=== PATIENT | male | born 2000 | race Hispanic/Latino ===

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

== ENCOUNTER 2024-12-18 13:51 | Emergency (ER) | payer MEDICAID ==
[~2024-12-18] VITALS: Ht 170.2 cm; Wt 137.9 kg
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
[2024-12-18] MEDS ORDERED: 0.9%NACL 1000ML 1,000 ML IV ONE (14:30)
[2024-12-18 14:37] LABS: BASOPHILS % (AUTO) 0.6 % (0.0-5.0); EOSINOPHILS # (AUTO) 0.07 K/uL (0.00-0.70); EOSINOPHILS % (AUTO) 0.4 % (0.0-8.0); HEMATOCRIT 51.9 % (42-54); IMMATURE GRANULOCYTE ABSOLUTE 0.14 K/uL (0-1); LYMPHOCYTES % (AUTO) 12.1 % (21.0-51.0); MEAN CORPUSCULAR HEMOGLOBIN 28.2 pg (27.0-33.0); MEAN CORPUSCULAR HGB CONC 34.1 g/dL (32.0-36.0); MEAN CORPUSCULAR VOLUME 82.6 fL (79-99); MONOCYTES # (AUTO) 0.9 K/uL (0.1-1.0); MONOCYTES % (AUTO) 5.6 % (3.0-13.0); NEUTROPHILS # (AUTO) 13.2 K/uL (1.8-7.7); NEUTROPHILS % (AUTO) 80.4 % (40.0-77.0); PLATELET COUNT (AUTO) 375 K/uL (130-400); RED BLOOD CELL COUNT(AUTO) 6.28 MIL/uL (4.50-6.20); RED CELL DISTRIBUTION WIDTH 14.6 % (11.0-15.5); WHITE BLOOD COUNT (AUTO) 16.5 K/uL (4.8-10.8)
[2024-12-18 14:48] LABS: PARTIAL THROMBOPLASTIN TIME 62.6 SEC (26.3-35.5)
--- NOTE | 2024-12-18 14:57 | EKG ---
[facility] Test Date: 2024-12-18 Test Time: 14:10:07 Pat Name: LAMINE BRAXTON Department: [facility] Room: Gender: M Program Counselor: 2000 Requested By: HAWA ACOSTA Order Number: [id number] Reading MD: Farooq Gardner Measurements Intervals [place] Rate: 84 P: 7 [place]: 222 QRS: 193 QRSD: 74 T: 66 QT: 0 QTc: 0 Interpretive Statements No further analysis attempted - not enough leads could be measured Compared to ECG 12/29/2017 14:24:42 Sinus rhythm no longer present Myocardial infarct finding no longer present Probable old laterat [place] Electronically Signed On 12-20-2024 14:00:34 CDT by Farooq Gardner Please click the below link to view image of tracing.
[2024-12-18 15:01] LABS: MAGNESIUM 2.5 mg/dL (1.80-2.40); POTASSIUM 3.2 mmol/L (3.5-5.1)
[2024-12-18 15:10] LABS: B-TYPE NATRIURETIC PEPTIDE 8 pg/mL (0-100)
[2024-12-18 15:14] LABS: INR 5.54 (0.85-1.15); PROTHROMBIN TIME 49.6 SEC (9.6-11.6)
--- NOTE | 2024-12-18 15:49 | HMCIMG ---
Exam Type: CHEST 1VW Clinical Information: CHEST PAIN Comparison: None Findings: There is cardiomegaly and there is status post median sternotomy. The lungs are clear of infiltrates. Left-sided cardiac pacemaker is noted with leads in place. Impression: Clear lungs.
[2024-12-18] MEDS: PoTASSium BIcarbonate/CIT AC 25 MEQ TABLET.EFF PO ONE (15:58)
--- NOTE | 2024-12-18 16:45 | NUR ---
TRANSFER REQUEST FOR HIGHER LEVEL OF CARE TO [facility] PER HAWA ACOSTA NP. TRAMAINE K[facility]P
--- NOTE | 2024-12-18 16:58 | NUR ---
TRANSFER CENTER INTAKE NURSE CALL JERAMIE POOLE WITH ACCEPTANCE UNDER DR MARISA SEAY TO [place] [facility] ROOM 2415 AND [place] WILL PROVIDE AIR TRANSPORTATION . PRIMARY NURSE TO CALL REPORT TO [phone]
[2024-12-18] MEDS ORDERED: PHARMACY COMMUNICATION MISC SCH (17:00)
--- NOTE | 2024-12-18 18:00 | NUR ---
HAWA WOODWARD RECEIVED CALL FROM THE TRANSFER CENTER UNABLE TO TRANSPORT PT VIA AIR DO TO WEIGHT. PRIMARY NURSE TO CONTACT [facility] TO TRANSPORT VIA GROUND. TRAMAINE KEMP
--- NOTE | 2024-12-18 18:22 | NUR ---
[facility] CALL[facility] FOR TRANSFER TO [facility]
[2024-12-18] MEDS: daptoMYCin 500MG/vial 500 MG in 0.9%NACL 50ML 50 ML IV ONE (18:33)
[2024-12-18] MEDS: ceFEPime HCL 1 GM VIAL IVPB STA (18:34)
[2024-12-18 19:10] VITALS: BP 83/49; PULSE 64
[2024-12-18 19:16] LABS: APPEARANCE,URINE CLEAR (CLEAR); BILIRUBIN,URINE NEGATIVE (NEGATIVE); COLOR,URINE COLORLESS (YELLOW); GLUCOSE, URINE (UA) 200 mg/dL (NEGATIVE); KETONES,URINE NEGATIVE (NEGATIVE); LEUKOCYTE ESTERASE ,URINE NEGATIVE Leu/uL (NEGATIVE); NITRATE,URINE NEGATIVE (NEGATIVE); OCCULT BLOOD,URINE NEGATIVE (NEGATIVE); PROTEIN,URINE NEGATIVE (NEGATIVE); UROBILINOGEN,URINE 0.2 mg/dL (0.2-1.0)
[2024-12-18 19:17] LABS: ADD UA MICROSCOPIC YES
[2024-12-18 19:18] LABS: WBC,URINE 0-1 /HPF (0-1)
[2024-12-18 20:45] VITALS: RESP 18; TEMP 98.7; O2SAT 96
--- NOTE | 2024-12-18 20:45 | NUR ---
[facility] AT BEDSIDE FOR TRANSPORT TO [facility], REPORT CALLED TO [facility] BY JUSTO MART AT 1930. ALL QUESTIONS ANSWERED. FAMILY AT BEDSIDE AND AWARE OF PLAN OF CARE. PT IS A&OX4, GCS 15, RESP EVEN AND UNLABORED ON RA, DENIES NEEDS AT THIS TIME, NO SIGNS OF ACUTE DISTRESS NOTED AT TIME OF DEPARTURE. ALL PT BELONGINGS SENT WITH PT AT THIS TIME. MAP 82 AT TIME OF DEPARTURE.
== END 2024-12-18 20:45 | disposition short-term general hospital (02) ==
LOC: EDH 13:51
DX: T85.730A Infection and inflammatory reaction due to ventricular intracranial (communicating) shunt, initial encounter (principal); T45.515A Adverse effect of anticoagulants, initial encounter; N17.9 Acute kidney failure, unspecified; E87.6 Hypokalemia; E87.1 Hypo-osmolality and hyponatremia; E86.0 Dehydration; I10 Essential (primary) hypertension; Z95.1 Presence of aortocoronary bypass graft; Z95.810 Presence of automatic (implantable) cardiac defibrillator; Y84.8 Other medical procedures as the cause of abnormal reaction of the patient, or of later complication, without mention of misadventure at the time of the procedure; Y92.89 Other specified places as the place of occurrence of the external cause
CPT/HCPCS: 99291; 96374; 96375; 83615; 83735; 84484; 80048; 83880; 85025; 85610; 85730; 85651; 87040 ×2; 83605; 86140; 81001; 36415; 71045; 93005; 84145; J0692; J0878; 99285

== ENCOUNTER 2025-07-11 20:54 | Inpatient (IN) | payer MEDICAID ==
[~2025-07-11] VITALS: Ht 177.8 cm; Wt 145.9 kg
[2025-07-11 21:38] LABS: IMMATURE GRANULOCYTE ABSOLUTE 0.06 K/uL (0-1); NUCLEATED RED BLOOD CELLS 0.0 % (0.0-0.19); PLATELET COUNT (AUTO) 253 K/uL (130-400); RED BLOOD CELL COUNT(AUTO) 5.41 MIL/uL (4.50-6.20); RED CELL DISTRIBUTION WIDTH 15.4 % (11.0-15.5); WHITE BLOOD COUNT (AUTO) 14.9 K/uL (4.8-10.8)
[2025-07-11 21:49] LABS: CREATININE 0.9 mg/dL (0.5-1.3); GLOMERULAR FILTR. RATE CALC 122.0 mL/min (>90); GLUCOSE,RANDOM 110.0 mg/dL (70-105); SODIUM SERUM 131.0 mmol/L (136-145); UREA NITROGEN, BLOOD 26.0 mg/dL (7-18)
[2025-07-11 21:54] LABS: CREATINE KINASE, TOTAL 128.0 U/L (21-232)
--- NOTE | 2025-07-11 22:38 | HMCIMG ---
EXAM: CR Chest, 1 View. CLINICAL HISTORY: SOB COMPARISON: December 18 2024 FINDINGS: LUNGS: The lungs show no infiltrate or other acute finding. PLEURAL SPACES: No pleural effusion or pneumothorax. MEDIASTINUM: There is cardiomegaly. Cardiac pacemaker is seen. BONES: No aggressive appearing osseous lesion seen. IMPRESSION: No acute cardiopulmonary pathology is evident. /[place]
[2025-07-11 22:59] LABS: INR 1.09 (0.85-1.15)
--- NOTE | 2025-07-11 23:05 | ERN ---
ED Note History of Present Illness Stated Complaint: SHORTNESS OF BREATH Chief Complaint: Shortness of Breath Time Seen by MD: 21:05 Dictation: 25-year-old male presents to ER complaints of shortness of breath. Patient's has a history of cardiomegaly, pacemaker, cardiomyopathy. Patient currently uses an LVAD. Patient states he has been retaining fluid for the past few days. States his LVAD coordinator told him to come into ER to get further evaluation possibly diuresed. Allergies: Coded Allergies: No Known Drug Allergies (Unverified Allergy, Unknown, 02/21/24) Past Medical History Past Medical History: Heart Disease, Hypertension, Other Additional Past Medical Hx: CARDIO MYOPATHY Surgical History: CABG, Pacer/AICD Surgical History Other: LVAD Review of System Dictation CONSTITUTIONAL: NEGATIVE FOR FEVER,CHILLS, AND WEIGHT LOSS EYES: NEGATIVE FOR INJURY, PAIN,REDNESS, AND DISCHARGE ENT: NEGATIVE FOR INJURY,PAIN OR SWELLING CARDIOVASCULAR: NEGATIVE FOR CHEST PAIN, PALPITATIONS, AND EDEMA RESPIRATORY: NEGATIVE FOR COUGH, WHEEZING, AND PLEURITIC CHEST PAIN. Positive shortness of breath ABDOMEN/GI: NEGATIVE FOR ABDOMINAL PAIN, NAUSEA, VOMITING AND DIARRHEA. BACK: NEGATIVE FOR PAIN OR INJURY : NEGATIVE FOR INJURY, BLEEDING AND DISCHARGE MS/EXTREMITY: NEGATIVE FOR INJURY AND DEFORMITY SKIN: NEGATIVE FOR RASH, AND DISCOLORATION NEURO: NEGATIVE FOR HEADACHE, WEAKNESS, NUMBNESS, TINGLING, AND SEIZURE PSYCH: NEGATIVE FOR SUICIDE IDEATION, HOMICIDAL IDEATION, AND HALLUCINATIONS ALLERGY/IMMUNOLOGY: NEGATIVE FOR HIVES, RASH, AND ALLERGIES ALL SYSTEMS NEGATIVE, EXCEPT NOTED ABOVE. 13 POINT REVIEW OF SYSTEMS ASSESSED AND ALL NEGATIVE EXCEPT FOR ABOVE. Physical Exam Dictation General: awake, alert, NAD Head/Face: Normocephalic, atraumatic Eyes: PERRL, EOMI, vision at baseline ENT: oral cavity clear, TMs clear, no signs of infection Neck: Trachea midline, supple, no nuchal rigidity Cardiovascular: RRR, normal no JVD Respiratory: CTAB, no respiratory distress Abdomen: Obese, Soft, non-tender, non-distended, normal bowel sounds, no guarding or rebound. LVAD drain noted to right side of abdomen Skin: Warm, dry, normal turgor, no rash MS/Extremity: Pulses equal, no cyanosis, neurovascular intact, FROM Neuro: COAx4, GCS 15, strength 5/5, CN 2-12 intact, normal cerebellar exam, normal gait, Psych: Normal behavior, mood, and affect normal Results (Laboratory/Radiology) Laboratory/Radiology Laboratory Tests Test 07/11/25 21:32 07/11/25 22:19 07/11/25 23:16 White Blood Count 14.9 K/uL (4.8-10.8) H Red Blood Count 5.41 MIL/uL (4.50-6.20) Hemoglobin 14.3 g/dL (14.0-18.0) Hematocrit 44.1 % (42-54) Mean Corpuscular Volume 81.5 fL (79-99) Mean Corpuscular Hemoglobin 26.4 pg (27.0-33.0) L Mean Corpuscular Hemoglobin Concent 32.4 g/dL (32.0-36.0) Red Cell Distribution Width 15.4 % (11.0-15.5) Platelet Count 253 K/uL (130-400) Mean Platelet Volume 10.3 fL (7.5-10.5) Immature Granulocyte % (Auto) 0.4 % (0-1) Neutrophils (%) (Auto) 77.4 % (40.0-77.0) H Lymphocytes (%) (Auto) 16.0 % (21.0-51.0) L Monocytes (%) (Auto) 5.2 % (3.0-13.0) Eosinophils (%) (Auto) 0.5 % (0.0-8.0) Basophils (%) (Auto) 0.5 % (0.0-5.0) Neutrophils # (Auto) 11.5 K/uL (1.8-7.7) H Lymphocytes # (Auto) 2.4 K/uL (1.0-4.8) Monocytes # (Auto) 0.8 K/uL (0.1-1.0) Eosinophils # (Auto) 0.07 K/uL (0.00-0.70) Basophils # (Auto) 0.08 K/uL (0.00-0.20) Absolute Immature Granulocyte (auto 0.06 K/uL (0-1) Nucleated Red Blood Cells 0.0 % (0.0-0.19) Prothrombin Time 11.5 SEC (9.6-11.6) Prothromb Time International Ratio 1.09 (0.85-1.15) Activated Partial Thromboplast Time 27.0 SEC (26.3-35.5) Sodium Level 131 mmol/L (136-145) L Potassium Level 4.1 mmol/L (3.5-5.1) Chloride Level 91 mmol/L (101-111) L Carbon Dioxide Level 29 mmol/L (21-32) Blood Urea Nitrogen 26 mg/dL (7-18) H Creatinine 0.9 mg/dL (0.5-1.3) Glomerular Filtration Rate Calc 122 mL/min (>90) Random Glucose 110 mg/dL (70-105) H Total Calcium 8.7 mg/dL (8.5-10.1) Magnesium Level 2.40 mg/dL (1.80-2.40) Total Creatine Kinase 128 U/L (21-232) Troponin I High Sensitivity 11 ng/L (4-75) B-Type Natriuretic Peptide 314 pg/mL (0-100) H Lactic Acid Level 2.6 mmol/L (0.8-2.5) H Urine Color YELLOW (YELLOW) Urine Appearance CLEAR (CLEAR) Urine pH 5.5 (5.0-8.0) Urine Specific [place] 1.018 (1.001-1.031) Urine Protein 20 mg/dL (NEGATIVE) H Urine Glucose (UA) 300 mg/dL (NEGATIVE) H Urine Ketones NEGATIVE mg/dL (NEGATIVE) Urine Occult Blood NEGATIVE (NEGATIVE) Urine Nitrate NEGATIVE (NEGATIVE) Urine Bilirubin NEGATIVE mg/dL (NEGATIVE) Urine Urobilinogen 0.2 mg/dL (0.2-1.0) Urine Leukocyte Esterase NEGATIVE Donald/uL Urine RBC 0-1 /HPF (0-1) Urine WBC 2-5 /HPF (0-1) H Urine Squamous Epithelial Cells RARE /HPF (0-2) Urine Bacteria FEW /HPF (None Seen) Urine Hyaline Casts 2-5 /LPF (0-1 /LPF) H X-RAY Comment: PATIENT: LAMINE BRAXTON MR#: [id number] : 2000 SEX: M AGE: 25 LOCATION: [facility] ORDER 23 STATUS: REG REPORT#: [id number] SERVICE 21 REASON: SOB ORDERING PHYSICIAN: FRANCOIS ANTONIO PROCEDURE: CXR1VW - CHEST 1VW EXAM: CR Chest, 1 View. CLINICAL HISTORY: SOB COMPARISON: December 18 2024 FINDINGS: LUNGS: The lungs show no infiltrate or other acute finding. PLEURAL SPACES: No pleural effusion or pneumothorax. MEDIASTINUM: There is cardiomegaly. Cardiac pacemaker is seen. BONES: No aggressive appearing osseous lesion seen. IMPRESSION: No acute cardiopulmonary pathology is evident. /[place] ED Course ED Course Orders Procedure Category Date Status Time Cbc With Differential LAB 07/11/25 Complete 21:22 Chest 1vw RAD 07/11/25 Resulted 21:22 12 Lead Ekg Tracing- EKG 07/11/25 Logged Technical 21:22 Magnesium LAB 07/11/25 Complete 21:22 Creatine Kinase, Total LAB 07/11/25 Complete 21:22 Troponin I High LAB 07/11/25 Complete Sensitivity 21:22 Urinalysis Profile LAB 07/11/25 In Process 21:22 Basic Metabolic Panel LAB 07/11/25 Complete 21:22 B-Type Natriuretic LAB 07/11/25 Complete Peptide 21:22 Lactic Acid LAB 07/11/25 Complete 22:09 Pt And Ptt LAB 07/11/25 Complete 22:43 Drug Screen Urine LAB 07/11/25 Logged 23:29 Medical Decision Making MDM MDM: Differential diagnosis: Pulmonary edema, CHF, cardiomegaly, cardiomyopathy Rationale: Tests considered and ordered secondary to shared decision making include: labs, ECG and radiology Previous outside records reviewed: Old ER visits. Risk of complication and/or morbidity or mortality of patient management: None Medications-Per medication reconciliation Need for hospitalization: Patient does meet criteria for hospitalization. Need for emergency major/minor surgery: No There are no social concerns with this patient. Prescription drug management Prescriptions will include symptomatic care Patient's prior external medical records from other ER visits were reviewed by me as indicated. Prior testing and results from previous visits were reviewed. Prior tests were taken into account with medical decision making and resource utilization, independent historian/historians were used to obtain complete medical history. I independently interpreted the test that were performed, results were reviewed by me and considered findings on radiology if ordered. Patient will be admitted to Dr. Badillo his PCP. Consulted and admitted. DX & DISP Disposition: Inpatient Departure Impression: Primary Impression: Dyspnea Additional Impressions: Leukocytosis, CHF (congestive heart failure), Cardiomegaly Condition: Stable Referrals: BRICE BADILLO MD (PCP) FRANCOIS ANTONIO Jul 11, 2025 23:04
[2025-07-11 23:31] LABS: APPEARANCE,URINE CLEAR (CLEAR); GLUCOSE, URINE (UA) 300 mg/dL (NEGATIVE); LEUKOCYTE ESTERASE ,URINE NEGATIVE Leu/uL (NEGATIVE); NITRATE,URINE NEGATIVE (NEGATIVE); OCCULT BLOOD,URINE NEGATIVE (NEGATIVE)
[2025-07-11 23:43] LABS: ADD UA MICROSCOPIC YES
[2025-07-11 23:45] LABS: SQUAMOUS EPITHELIAL CELL,UR RARE /HPF (0-2)
[2025-07-12] VITALS (20 sets, daily range): BP systolic 90–94; BP diastolic 65–72; PULSE 88–134; RESP 17–107; TEMP 98.4–99.8; O2SAT 96
--- NOTE | 2025-07-12 00:53 | NUR ---
REPORT GIVEN TO JERAMIE KEMP
[2025-07-12] MEDS ORDERED: BUME1TAB6 PO (03:58)
[2025-07-12] MEDS ORDERED: HYDR25TA PO (03:58)
[2025-07-12] MEDS ORDERED: EMPA10TA PO (03:58)
[2025-07-12] MEDS ORDERED: MAGN400T53 PO (03:58)
[2025-07-12] MEDS ORDERED: FAMO20TA8 PO (03:58)
[2025-07-12] MEDS ORDERED: SPIR100T5 PO (03:58)
[2025-07-12] MEDS ORDERED: DOXY100C5 PO (03:58)
[2025-07-12] MEDS ORDERED: APIX5TAB PO (03:58)
[2025-07-12] MEDS ORDERED: BUPR-49 PO (03:58)
[2025-07-12] MEDS ORDERED: MUPI22OI2 TP (03:58)
[2025-07-12] MEDS ORDERED: DIGO125T71 PO (03:58)
[2025-07-12] MEDS ORDERED: TIRZ7.5P SQ (03:58)
[2025-07-12] MEDS ORDERED: CARV6.25 PO (03:58)
[2025-07-12] MEDS ORDERED: POTA10CA95 PO (03:58)
[2025-07-12] MEDS ORDERED: LOSA25TA41 PO (03:58)
--- NOTE | 2025-07-12 04:34 | EKG ---
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
[2025-07-12 08:24] LABS: AMPHET/METH SCREEN,URINE NEGATIVE (NEGATIVE); BARBITURATE SCREEN, URINE NEGATIVE (NEGATIVE); CANNABINOID SCREEN,URINE NEGATIVE (NEGATIVE); COCAINE SCREEN,URINE NEGATIVE (NEGATIVE)
[2025-07-12] MEDS ORDERED: NON-FORMULARY MEDICATION 1 EACH (Potassium Chloride 10 MEQ) PO SCH (08:30)
[2025-07-12] MEDS: BUPROPION HCL 300 MG PO SCH (09:00)
--- NOTE | 2025-07-12 09:10 | NUR ---
NURSING NOTE DR. DOZIER ROUND ON PATIENT ALL HOME MEDS REVIEWED WITH MD AND PATIENT LVAD COORDINATOR AND RESTARTED.
[2025-07-12 09:14] LABS: IMMATURE GRANULOCYTE ABSOLUTE 0.08 K/uL (0-1); NUCLEATED RED BLOOD CELLS 0.0 % (0.0-0.19); PLATELET COUNT (AUTO) 261 K/uL (130-400); RED BLOOD CELL COUNT(AUTO) 5.50 MIL/uL (4.50-6.20); RED CELL DISTRIBUTION WIDTH 15.7 % (11.0-15.5); WHITE BLOOD COUNT (AUTO) 14.6 K/uL (4.8-10.8)
[2025-07-12 09:23] LABS: CREATININE 1.0 mg/dL (0.5-1.3); GLOMERULAR FILTR. RATE CALC 107.0 mL/min (>90); GLUCOSE,RANDOM 109.0 mg/dL (70-105); SODIUM SERUM 138.0 mmol/L (136-145); UREA NITROGEN, BLOOD 23.0 mg/dL (7-18)
[2025-07-12 09:28] LABS: ASPARTATE AMINOTRANSFERASE 25.0 U/L (10-37); TOTAL PROTEIN, SERUM 7.4 g/dL (6.0-8.3)
--- NOTE | 2025-07-12 09:42 | CONS ---
[facility] CARDIOLOGY CONSULTATION NOTE Date Patient Seen: Jul 12, 2025 Time of Visit: 09:31 Requesting Physician:Dr Rasmussen Reason for Consultation:AEHFREF History of Present Illness: Patient is a 25-year-old male with past medical history of longstanding heart f ailure with reduced ejection fraction, nonischemic cardiomyopathy with left ventricular assist device placement 4 years ago, CardioMEMS device, primary prevention ICD. 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 His primary environmental geologist is at [facility] in [place], Dr. Spears. Patient presented with chief complaint of shortness of breath and weight gain. Previous dry weight 138 kg, 143 kg upon presentation. BNP elevated at 314 however chest x-ray clear. No objective hypoxia however patient subjectively short of breath. No significant peripheral edema. Patient reports compliance with his medications. No ICD shocks reported and no issues with his LVAD. Current readings 5600 RPM, flow 4.2, PI 2.9, power 4.0 Past Medical History: NICMP PNA LVAD drivetrain infection, on chronic ABX Past Surgical History: LVAD, CardioMEMs, ICD Family History: denies Social History: good family support; denies tobacco; denies etoh Current Meds: Current Medications Medications Dose Ordered Sig/Chago Start Time Stop Time Status Last Admin Furosemide 40 mg Q8H 07/12/25 00:00 08/11/25 00:00 07/12/25 08:02 Ceftriaxone Sodium 1 gm Q24H 07/12/25 00:00 07/22/25 00:00 07/12/25 03:19 Apixaban 5 mg BID 07/12/25 09:00 08/11/25 08:59 Carvedilol 6.25 mg BID 07/12/25 09:00 08/11/25 08:59 Digoxin 125 mcg DAILY 07/12/25 09:00 08/11/25 08:59 Empaglifozin 10 mg DAILY 07/12/25 09:00 08/11/25 08:59 Famotidine 20 mg BID 07/12/25 09:00 08/11/25 08:59 Losartan Potassium 12.5 mg DAILY 07/12/25 09:00 08/11/25 08:59 Home Med DAILY 07/12/25 09:00 08/11/25 08:59 Magnesium Oxide 400 mg BID 07/12/25 09:00 08/11/25 08:59 Mupirocin 1 APPL BID 07/12/25 09:00 08/11/25 08:59 Doxycycline Hyclate 100 mg BID 07/12/25 09:00 07/22/25 08:59 Hydrochlorothiazide 25 mg DAILY 07/12/25 09:00 08/11/25 08:59 Spironolactone 100 mg DAILY 07/12/25 09:00 08/11/25 08:59 Review of Systems: Patient reports shortness of breath, weight gain, minimal swelling to the extremities. Denies any chest pain. Denies any ICD discharges. Denies orthopnea or PND. No bleeding or bruising. Reports no increasing redness or discharge at the LVAD drivetrain insertion site. No cough. No fevers. Physical Examination: GENERAL: [No acute distress.] HEAD: [Normal with no signs of head trauma.] EYES: [PERRLA, EOMI, conjunctiva and sclera normal.] ENT: [Hearing grossly intact, normal oropharynx.] NECK: [ Normal carotid upstrokes without bruits.] LUNGS: [Clear breath sounds bilaterally. On 2L O2 via NC. No distress. No wheezes, or rhonchi.] HEART: LVAD : 5600 RPM, flow 4.2, PI 2.9, power 4.0 VASC: [Peripheral pulses +2 bilaterally.] EXT: [no cyansosis. trace edema bilateral lower extremities. 1+ left hand. SKIN: [warm, dry..] NEURO: [Awake, alert, and oriented x3. No focal sensory or strength deficits noted.] Vital Signs (last 8hr) Date Time Temp Pulse Resp B/P (MAP) Pulse Ox O2 Delivery O2 Flow Rate FiO2 07/12/25 03:00 103 20 98 Room Air 07/12/25 02:00 105 18 98 Room Air Laboratory: [ ] Hematology Labs: Test 07/12/25 08:55 Range/Units White Blood Count 14.6 H 4.8-10.8 K/uL Red Blood Count 5.50 4.50-6.20 MIL/uL Hemoglobin 14.5 14.0-18.0 g/dL Hematocrit 45.1 42-54 % Mean Corpuscular Volume 82.0 79-99 fL Mean Corpuscular Hemoglobin 26.4 L 27.0-33.0 pg Mean Corpuscular Hemoglobin Concent 32.2 32.0-36.0 g/dL Red Cell Distribution Width 15.7 H 11.0-15.5 % Platelet Count 261 130-400 K/uL Mean Platelet Volume 10.4 7.5-10.5 fL Immature Granulocyte % (Auto) 0.5 0-1 % Neutrophils (%) (Auto) 76.3 40.0-77.0 % Lymphocytes (%) (Auto) 16.5 L 21.0-51.0 % Monocytes (%) (Auto) 5.5 3.0-13.0 % Eosinophils (%) (Auto) 0.6 0.0-8.0 % Basophils (%) (Auto) 0.6 0.0-5.0 % Neutrophils # (Auto) 11.1 H 1.8-7.7 K/uL Lymphocytes # (Auto) 2.4 1.0-4.8 K/uL Monocytes # (Auto) 0.8 0.1-1.0 K/uL Eosinophils # (Auto) 0.09 0.00-0.70 K/uL Basophils # (Auto) 0.09 0.00-0.20 K/uL Absolute Immature Granulocyte (auto 0.08 0-1 K/uL Nucleated Red Blood Cells 0.0 0.0-0.19 % Chemistry Labs: Test 07/12/25 08:55 07/12/25 01:48 07/11/25 21:32 Range/Units Sodium Level 138 136-145 mmol/L Potassium Level 3.2 L 3.5-5.1 mmol/L Chloride Level 94 L 101-111 mmol/L Carbon Dioxide Level 32 21-32 mmol/L Blood Urea Nitrogen 23 H 7-18 mg/dL Creatinine 1.0 0.5-1.3 mg/dL Glomerular Filtration Rate Calc 107 >90 mL/min Random Glucose 109 H 70-105 mg/dL Total Calcium 9.0 8.5-10.1 mg/dL Magnesium Level 2.40 1.80-2.40 mg/dL Total Bilirubin 1.0 0.2-1.0 mg/dL Aspartate Amino Transf (AST/SGOT) 25 10-37 U/L Alanine Aminotransferase (ALT/SGPT) 32 12-78 U/L Alkaline Phosphatase 82 50-136 U/L Total Protein 7.4 6.0-8.3 g/dL Albumin 3.4 L 3.5-5.0 g/dL Lactic Acid Level 1.5 0.8-2.5 mmol/L Total Creatine Kinase 128 21-232 U/L Troponin I High Sensitivity 11 4-75 ng/L B-Type Natriuretic Peptide 314 H 0-100 pg/mL Coagulation Labs: Test 07/11/25 21:32 Range/Units Prothrombin Time 11.5 9.6-11.6 SEC Prothromb Time International Ratio 1.09 0.85-1.15 Activated Partial Thromboplast Time 27.0 26.3-35.5 SEC Diagnostics / Radiology: REASON: SOB ORDERING PHYSICIAN: FRANCOIS ANTONIO PROCEDURE: CXR1VW - CHEST 1VW EXAM: CR Chest, 1 View. CLINICAL HISTORY: SOB COMPARISON: December 18 2024 FINDINGS: LUNGS: The lungs show no infiltrate or other acute finding. PLEURAL SPACES: No pleural effusion or pneumothorax. MEDIASTINUM: There is cardiomegaly. Cardiac pacemaker is seen. BONES: No aggressive appearing osseous lesion seen. IMPRESSION: No acute cardiopulmonary pathology is evident. /[place] DICTATED BY: CASSANDRA CABELLO MD DATE: 07/11/252337 ELECTRONICALLY SIGNED BY: CASSANDRA CABELLO MD DATE: 07/11/252337 Assessment: Acute exacerbation of heart failure with reduced ejection fraction Non ischemic cardiomyopathy End stage CHF with LVAD CardioMEMs device hx LVAD drive train infection Recent PNA history ICD in place Plan: 1. Standings weights q shift 2. Urine output measurement q shift 3. Pending blood cultures, Sed rate, CRP. Continue home chronic ABX doxycycline and mupirocin. Continue IV ABX ceftriaxone pending studies. Patient's mother to perform LVAD drivetrain dressing site change, followed by skin/drivetrain site culture to be sent to lab. 4. Continue home medications with exception of PO Bumex and Mounjaro 5. IV diuresis with Bumex 1mg/hr. He is high dosage of potassium repletion as outpatient, doses confirmed by patient and his LVAD coordinator (80mEq in AM, 80mEq afternoon, 40 mEq evening) -Continue. Daily labs to include Cr, K, Mg. 6. Will reach out to CardioMEMs rep for device readings to help manage diuresis. Alternative is coordination with team in [place] to review remote readings. Patient condition and plan of care discussed with LVAD coordinator Fabby Cano [phone], fax [phone] JOHNATHAN DOZIER DO Jul 12, 2025 09:42
--- NOTE | 2025-07-12 10:47 | NUR ---
DCP: HOME Pt is a 25yro young man, recently approved for SSD, lives at home with his mother. pt states his mother handles "everything" for him. Pt on food stamp assistance. Mother is his provider and assists him with ADLS as needed, transports, cooks and cleans. Pt uses a CPAP at home. No HH of HD services. PCP is Donnie Rasmussen and uses Shefali Quiles for rx. Pt [place] home [place] Addendum: 07/12/25 at 1051 by LEI GILL Amended: Links added.
[2025-07-12] MEDS: MAGNESIUM OXIDE 400 MG TABLET PO SCH (11:01)
[2025-07-12] MEDS: EMPAGLIFLOZIN 10MG TABLET PO SCH (11:02)
[2025-07-12] MEDS: PoTASSium chloRIDE 20MEQ ER 20 MEQ ERTAB PO ONE ×3 (11:02→12:23)
[2025-07-12] MEDS: DOXYCYCLINE HYCLATE 100 MG TABLET PO SCH (11:03)
[2025-07-12] MEDS: SPIRONOLACTONE 25 MG TAB PO SCH (11:04)
[2025-07-12] MEDS: FAMOTIDINE 20MG TAB PO SCH (11:05)
[2025-07-12] MEDS: MUPIROCIN OINTMENT 22 GM TUBE TP SCH (11:05)
[2025-07-12] MEDS ORDERED: PoTASSium chloRIDE 20MEQ ER 20 MEQ ERTAB PO PRN (12:30)
[2025-07-12] MEDS: BUMETANIDE 2.5MG/10ML (DRIP) 80 ML IV SCH (12:35)
[2025-07-12 12:53] LABS: LDL DIRECT 61 mg/dL (0-99)
--- NOTE | 2025-07-12 12:59 | CONS ---
[facility] CONSULTATION NOTE Date Patient Seen: Jul 12, 2025 Time of Visit: 12:59 Supervising Physician: LANDON REAVES MD Reason for Consultation: [facility] Primary Care Physician: BRICE BADILLO Outpatient Specialists: [ ] Inpatient Consults: DR TASIA AGUIRRE PROBLEM LIST: Sepsis Acute hypoxic respiratory failure, POA Acute on chronic systolic and diastolic heart failure with reduced EF, POA Nonischemic cardiomyopathy status post ICD End-stage CHF post LVAD placement four years ago (CardioMEMs device) Concerns for LVAD drive line infection Suspected DAYA Morbid obesity BMI of 46.1 HPI: This is a morbidly obese 25-year-old male with a BMI of 46, with a past medical history continue to heart disease and longstanding heart failure with the reduced EF status post LVAD placement 4 years ago and ICD. He reported a recent pneumoniae few weeks prior and maintain on doxycycline for LVAD driveline infection and mupirocin in the nares. Patient presented to the ED for shortness for breath in weight gain. Pt was told by his LVAD Specialist to present to ED for diuresing. He was admitted by Dr Badillo who consulted Cardiology Dr Chong and us for critical care management. On assessment patient is awake alert and oriented x3. currently reports shortness for breath. Denies chest pain or palpitations at this time. Heart rate was in the 130s earlier per RN, now has been improved to the 90s, currently w manual BP 98/78 MAP > 50. He is on L via nasal cannula saturating 98% in no apparent respiratory distress respiratory rate of 20. Patient did have a temperature of 99.9 in the last 24 hours. White count was 14.6 platelet count of 261 K H&H is normal. Potassium was 3.2 corrected per protocol chloride of 94 carbon dioxide 32. BUN23 creatinine 1.0 and GFR of 107. Lactic acid of 1.5. Trended down. Albumin of 3.4. Coags within normal limits. Chest x-ray shows no acute cardiopulmonary pathology is evident. PAST MEDICAL HX: see above PAST SURGICAL HX: noncontributory SOCIAL HISTORY: No tobacco, ETOH, or illicit drug use Coded Allergies: No Known Drug Allergies (Unverified Allergy, Unknown, 02/21/24) REVIEW OF SYSTEMS: 12 point ROS reviewed with patient. Pertinent positives mentioned above. Otherwise negative. PHYSICAL EXAM: GENERAL: alert, weak, awake oriented x 3 HEENT: EOMI, Sclera non icteric, moist mucosa NECK: Supple, no JVD, trachea midline LUNGS: Diminished breath sounds bilaterally. No wheezes HEART: Regular rate and rhythm. Normal S1 and S2, without murmurs ABD: Abdomen soft, nontender. Bowel sounds present EXT: No clubbing cyanosis or edema NEURO: Alert and oriented to person, follows commands Vital Signs (last 8hr) Date Time Temp Pulse Resp B/P (MAP) Pulse Ox O2 Delivery O2 Flow Rate FiO2 07/12/25 12:23 130 07/12/25 11:04 95 07/12/25 11:04 100/100 LABS: Hematology Labs: Test 07/12/25 08:55 Range/Units White Blood Count 14.6 H 4.8-10.8 K/uL Red Blood Count 5.50 4.50-6.20 MIL/uL Hemoglobin 14.5 14.0-18.0 g/dL Hematocrit 45.1 42-54 % Mean Corpuscular Volume 82.0 79-99 fL Mean Corpuscular Hemoglobin 26.4 L 27.0-33.0 pg Mean Corpuscular Hemoglobin Concent 32.2 32.0-36.0 g/dL Red Cell Distribution Width 15.7 H 11.0-15.5 % Platelet Count 261 130-400 K/uL Mean Platelet Volume 10.4 7.5-10.5 fL Immature Granulocyte % (Auto) 0.5 0-1 % Neutrophils (%) (Auto) 76.3 40.0-77.0 % Lymphocytes (%) (Auto) 16.5 L 21.0-51.0 % Monocytes (%) (Auto) 5.5 3.0-13.0 % Eosinophils (%) (Auto) 0.6 0.0-8.0 % Basophils (%) (Auto) 0.6 0.0-5.0 % Neutrophils # (Auto) 11.1 H 1.8-7.7 K/uL Lymphocytes # (Auto) 2.4 1.0-4.8 K/uL Monocytes # (Auto) 0.8 0.1-1.0 K/uL Eosinophils # (Auto) 0.09 0.00-0.70 K/uL Basophils # (Auto) 0.09 0.00-0.20 K/uL Absolute Immature Granulocyte (auto 0.08 0-1 K/uL Nucleated Red Blood Cells 0.0 0.0-0.19 % Chemistry Labs: Test 07/12/25 08:55 07/12/25 01:48 07/11/25 21:32 Range/Units Sodium Level 138 136-145 mmol/L Potassium Level 3.2 L 3.5-5.1 mmol/L Chloride Level 94 L 101-111 mmol/L Carbon Dioxide Level 32 21-32 mmol/L Blood Urea Nitrogen 23 H 7-18 mg/dL Creatinine 1.0 0.5-1.3 mg/dL Glomerular Filtration Rate Calc 107 >90 mL/min Random Glucose 109 H 70-105 mg/dL Total Calcium 9.0 8.5-10.1 mg/dL Magnesium Level 2.40 1.80-2.40 mg/dL Total Bilirubin 1.0 0.2-1.0 mg/dL Aspartate Amino Transf (AST/SGOT) 25 10-37 U/L Alanine Aminotransferase (ALT/SGPT) 32 12-78 U/L Alkaline Phosphatase 82 50-136 U/L Total Protein 7.4 6.0-8.3 g/dL Albumin 3.4 L 3.5-5.0 g/dL Triglycerides Level 98 30-200 mg/dL Cholesterol Level 101 <200 mg/dL LDL Cholesterol 61 0-99 mg/dL HDL Cholesterol 30 29-71 mg/dL Vitamin B12 Level 588 193-986 pg/mL Lactic Acid Level 1.5 0.8-2.5 mmol/L Total Creatine Kinase 128 21-232 U/L Troponin I High Sensitivity 11 4-75 ng/L B-Type Natriuretic Peptide 314 H 0-100 pg/mL Coagulation Labs: Test 07/11/25 21:32 Range/Units Prothrombin Time 11.5 9.6-11.6 SEC Prothromb Time International Ratio 1.09 0.85-1.15 Activated Partial Thromboplast Time 27.0 26.3-35.5 SEC DIAGNOSTICS / RADIOLOGY RESULTS: [ [place] [address] [address] IMAGING REPORT Signed PATIENT: LAMINE BRAXTON MR#: [id number] : 2000 SEX: M AGE: 25 LOCATION: [facility] ORDER 23 STATUS: REG ER REPORT#: [id number] SERVICE 21 REASON: SOB ORDERING PHYSICIAN: FRANCOIS ANTONIO PROCEDURE: CXR1VW - CHEST 1VW EXAM: CR Chest, 1 View. CLINICAL HISTORY: SOB COMPARISON: December 18 2024 FINDINGS: LUNGS: The lungs show no infiltrate or other acute finding. PLEURAL SPACES: No pleural effusion or pneumothorax. MEDIASTINUM: There is cardiomegaly. Cardiac pacemaker is seen. BONES: No aggressive appearing osseous lesion seen. IMPRESSION: No acute cardiopulmonary pathology is evident. /[place] DICTATED BY: CASSANDRA CABELLO MD DATE: 07/11/252337 ELECTRONICALLY SIGNED BY: CASSANDRA CABELLO MD DATE: 07/11/252337 ] PLAN NEURO: Minimize central acting medications as possible. Fall Precautions. Well lighted room through the day and minimize interruptions through the night to prevent acute delirium. PULMONARY: Supplemental 02 as needed Titrate Fio2 to keep Spo2 > or = 90% DuoNebs and CPT as needed ABG Follow chest x-ray CARDIOVASCULAR: auscultate pericardium for hum Keep LVAD battery plugged in monitor for LVAD alarms Titrate vasopressor to keep MAP >40 Continuous cardiac monitoring Follow cardiology recommendation who we will be coordinating with LVAD specialist q. LVAD coordinator is Dimitry Ph number [phone] follow LVAD coordinator recs DRIPS: bumex LINES: PIV GI & NUTRITION: Continue nutritional support Aspirations precautions Prokinetic agents and laxatives as needed KIDNEYS & ELECTROLYTES: Strict monitoring of intake and output Daily weights Avoid nephrotoxic agents Monitor electrolytes and replace as needed Goal urine output of 30mL/hr or 0.5mL/kg/hr Urine output: [ ] Fluid Balance: [ ] ENDOCRINE: Maintain blood glucose between 100-180 at all times. Insulin sliding scale for blood glucose management INFECTIOUS DISEASE: Trend temperature. Denis-culture if febrile. Micro: [ ] Blood cultures Influenza COVID Antibiotics: Cefepime Vancomycin Doxycycline HEMATOLOGY & COAGULATION: Monitor H&H. Keep Hgb > 7 Transfuse 1 unit of PRBC for Hgb < 7 Transfuse 1 pack of platelets of platelets < 20, 000 Watch for any signs and symptoms of bleeding SKIN: Pressure ulcer prevention per facility protocol Rehab: PT/OT Prophylaxis: GI: [ Famotidine 20 mg p.o. daily] DVT: [ Patient on Eliquis] Code Status: Full Resuscitation Disposition: [ ICU] Other: Total patient care time exceeds 35 minutes excluding all procedures. Case was discussed and seen with my supervising physician. The above plan was formulated and agreed upon. ATTESTATION BY PHYSICIAN I attest that I reviewed and discussed the case with the Physician Purchasing Specialist as well as agree with the Physician Purchasing Specialist's findings, plans of care, and documentation above. Landon Stokes MD, [facility] Jul 12, 2025 12:59
[2025-07-12] MEDS ORDERED: VANCOMYCIN PROTOCOL PER PHARMACY IV SCH (13:00)
--- NOTE | 2025-07-12 13:17 | HP ---
HISTORY OF PRESENT ILLNESS: The patient came to the emergency room complaining of shortness of breath. The patient refers having an increase in weight in the last few days. He is usually around 295 and his weight is around 302 today. The patient has an LVAD, he has been managed in [place]. He is getting ready to be on the cardiac transplant list. The patient was contacted by his LVAD coordinator and was told to come to the emergency room for diuresis. PAST MEDICAL HISTORY: Congestive heart failure, hypertension, status post pacemaker and AICD. REVIEW OF SYSTEMS: Having no fever, chills, seizures or loss of consciousness. No chest pain, palpitations or dizziness. No cough, wheezes, or rhonchi. No nausea, vomiting, or diarrhea. No dysuria, urgency, or frequency. No rashes, petechiae, or ecchymoses. No hallucinations or delusions. No suicidal ideations. PHYSICAL EXAMINATION: GENERAL: He is awake, alert; oriented in person, time and place; not in distress. VITAL SIGNS: Blood pressure is 100/100. Pulse 95. HEENT: Normocephalic, atraumatic. LUNGS: Clear to auscultation bilaterally. HEART: S1, S2 are distant. ABDOMEN: Prominent, soft, nontender. EXTREMITIES: No clubbing or cyanosis. LABORATORY DATA: Chest x-ray shows no acute cardiopulmonary pathology. WBC count 14.6, hemoglobin 14.5, platelets 261. Sodium 138, potassium 3.2, BUN 23, creatinine 1, albumin 3.4, AST 25, ALT 32. ASSESSMENT AND PLAN: * Dyspnea. Continue with diuresis with Lasix 40 mg IV q. 8 hours. * Congestive heart failure, seems to be controlled. Being a recent increase in weight, we were assuming that this is related to fluid retention. Continue diuretics as above. * Leukocytosis. Workup with blood cultures and urine cultures being sent. The patient was started on Rocephin. * Chronic anticoagulation. Continue with apixaban. * Hypertension. Continue home medication. * Cardiology consultation was requested. * Follow up in a.m. with results. * Plan to discharge when cleared by cardio. TID: [id number] RECEIPT: [id number]
[2025-07-12] MEDS ORDERED: PoTASSium chloRIDE 20MEQ ER 20 MEQ ERTAB PO SCH ×2 (14:00)
[2025-07-12 15:08] LABS: ABG BASE EXCESS 5.0 mmol/L (-2.0-3.0); ABG HCO3 29.7 mmol/L (21.0-28.0); ABG OXYGEN SATURATION 98.0 % (94.0-98.0); ABG PCO2 44 mmHg (35-48); ABG PH 7.450 (7.350-7.450); CARBON MONOXIDE 1.5 % (0.5-1.5); DEVICE COMMENT RR RENE; PO2, ARTERIAL BG 107.2 mmHg (83.0-108.0); TEMPERATURE, CELSIUS BG 37.0 CELSIUS (35.5-37.0); VENT MODE, BG 2LNC (ROOM AIR)
[2025-07-12] MEDS: POTASSIUM CHLORIDE 10 MEQ PO SCH ×2 (15:38→20:22)
[2025-07-12] MEDS: VANCOMYCIN 2GM/500 ML BAG 500 ML IV ONE (15:43)
--- NOTE | 2025-07-12 16:38 | NUR ---
Nutrition consult per BMI of 46.1 Reviewed labs, notes, and medications. Pt w/ food stamps assistance, Pt with CPAP at home, "mom handles everything", on HH, steroid, BG 109(H), K 3.2(L), elevated BUN 23, Cr WNL, HDL 30(L) per chart review. Wt via bed scale, last BM 07/11/25, no edema, well nourished per nursing. Pending labs to provide nutrition education. Fluid restriction per MD. Pt with PCM per BMI of 46.1. Recommendations: -Provide HH -Monitor PO intake -Encourage PO intake as able -Monitor BM -If no BM >3 days consider stool softener -Monitor electrolytes -Replenish electrolytes per protocol -Monitor wts -Reweigh as able -Order Vit D labs to rule out deficiency -Order A1C -Provide MVI QD -Recommend Pt to follow up with PCP -Monitor goals of care RD to follow + available for consult per protocol Addendum: 07/12/25 at [address] Amended: Links added.
[2025-07-12 18:27] LABS: COVID19 (SARS ANTIGEN RAPID) PRESUMPTIVE NEGATIVE (NEGATIVE); INFLUENZA TYPE A Negative For Type A (NEGATIVE); INFLUENZA TYPE B Negative For Type B (NEGATIVE)
--- NOTE | 2025-07-12 19:39 | NUR ---
NURSING NOTE PATIENT IS WITH LVAD, AUTOMATIC CUFF PRESSURES NOT READABLE AT TIMES SO MAPS WERE OBTAINED WITH DOPPLER AND MANUAL PRESSURE CUFF.
[2025-07-12 19:44] LABS: CREATININE 1.0 mg/dL (0.5-1.3); GLOMERULAR FILTR. RATE CALC 107.0 mL/min (>90); GLUCOSE,RANDOM 100.0 mg/dL (70-105); SODIUM SERUM 140.0 mmol/L (136-145); UREA NITROGEN, BLOOD 24.0 mg/dL (7-18)
[2025-07-12] MEDS ORDERED: MAGNESIUM 2GM PREMIX 50ML 50 ML IV PRN (20:30)
[2025-07-12] MEDS: VANCOMYCIN 1.25 GM/250 ML BAG 250 ML IV SCH (23:13)
[2025-07-13] VITALS (28 sets, daily range): BP systolic 69–160; BP diastolic 25–108; PULSE 87–99; RESP 14–177; TEMP 97.5–98.4; O2SAT 97–98
[2025-07-13 05:54] LABS: IMMATURE GRANULOCYTE ABSOLUTE 0.06 K/uL (0-1); NUCLEATED RED BLOOD CELLS 0.0 % (0.0-0.19); PLATELET COUNT (AUTO) 246 K/uL (130-400); RED BLOOD CELL COUNT(AUTO) 5.27 MIL/uL (4.50-6.20); RED CELL DISTRIBUTION WIDTH 15.9 % (11.0-15.5); WHITE BLOOD COUNT (AUTO) 14.9 K/uL (4.8-10.8)
[2025-07-13 06:14] LABS: ASPARTATE AMINOTRANSFERASE 21.0 U/L (10-37); CREATININE 0.9 mg/dL (0.5-1.3); GLOMERULAR FILTR. RATE CALC 122.0 mL/min (>90); GLUCOSE,RANDOM 108.0 mg/dL (70-105); LACTATE DEHYDROGENASE 281.0 U/L (81-234); SODIUM SERUM 137.0 mmol/L (136-145); TOTAL PROTEIN, SERUM 7.1 g/dL (6.0-8.3); UREA NITROGEN, BLOOD 22.0 mg/dL (7-18)
[2025-07-13 07:05] LABS: ERYTHROCYTE SEDIMENTATION RATE 27 MM/HR (0-15)
--- NOTE | 2025-07-13 08:11 | PN ---
[facility] CARDIOLOGY PROGRESS NOTE Date Patient Seen: Jul 13, 2025 Time of Visit: 08:07 Problem List: AEHFREF Bacteremia Interval History: Patient with UOP 1400 overnight Weight 146 kg today BCx 2/2 prelim gram positive cocci in clusters Patient afebrile WBC elevated however stable at 14,000. Sed Rate 27. CRP 51. Procalcitonin <0.05. Physical Examination: GENERAL: [No acute distress.] HEAD: [Normal with no signs of head trauma.] NECK: [ Normal carotid upstrokes without bruits.] LUNGS: [Clear breath sounds bilaterally. On 2L O2 via NC. No distress. No wheezes, or rhonchi.] HEART: LVAD. MAP adequate. VASC: [Peripheral pulses +2 bilaterally.] EXT: [no cyanosis. trace edema bilateral lower extremities. 1+ left hand. SKIN: [warm, dry..] NEURO: [Awake, alert, and oriented x3. No focal sensory or strength deficits noted.] Laboratory: [ ] Hematology Labs: Test 07/13/25 05:47 Range/Units White Blood Count 14.9 H 4.8-10.8 K/uL Red Blood Count 5.27 4.50-6.20 MIL/uL Hemoglobin 13.9 L 14.0-18.0 g/dL Hematocrit 43.5 42-54 % Mean Corpuscular Volume 82.5 79-99 fL Mean Corpuscular Hemoglobin 26.4 L 27.0-33.0 pg Mean Corpuscular Hemoglobin Concent 32.0 32.0-36.0 g/dL Red Cell Distribution Width 15.9 H 11.0-15.5 % Platelet Count 246 130-400 K/uL Mean Platelet Volume 10.2 7.5-10.5 fL Immature Granulocyte % (Auto) 0.4 0-1 % Neutrophils (%) (Auto) 75.4 40.0-77.0 % Lymphocytes (%) (Auto) 16.4 L 21.0-51.0 % Monocytes (%) (Auto) 6.0 3.0-13.0 % Eosinophils (%) (Auto) 1.1 0.0-8.0 % Basophils (%) (Auto) 0.7 0.0-5.0 % Neutrophils # (Auto) 11.2 H 1.8-7.7 K/uL Lymphocytes # (Auto) 2.4 1.0-4.8 K/uL Monocytes # (Auto) 0.9 0.1-1.0 K/uL Eosinophils # (Auto) 0.16 0.00-0.70 K/uL Basophils # (Auto) 0.10 0.00-0.20 K/uL Absolute Immature Granulocyte (auto 0.06 0-1 K/uL Nucleated Red Blood Cells 0.0 0.0-0.19 % Erythrocyte Sedimentation Rate 27 H 0-15 MM/HR Chemistry Labs: Test 07/13/25 05:47 07/12/25 08:55 07/12/25 01:48 07/11/25 21:32 Range/Units Sodium Level 137 136-145 mmol/L Potassium Level 3.7 3.5-5.1 mmol/L Chloride Level 98 L 101-111 mmol/L Carbon Dioxide Level 32 21-32 mmol/L Blood Urea Nitrogen 22 H 7-18 mg/dL Creatinine 0.9 0.5-1.3 mg/dL Glomerular Filtration Rate Calc 122 >90 mL/min Random Glucose 108 H 70-105 mg/dL Total Calcium 8.6 8.5-10.1 mg/dL Magnesium Level 2.20 1.80-2.40 mg/dL Total Bilirubin 0.8 0.2-1.0 mg/dL Aspartate Amino Transf (AST/SGOT) 21 10-37 U/L Alanine Aminotransferase (ALT/SGPT) 26 12-78 U/L Alkaline Phosphatase 86 50-136 U/L Lactate Dehydrogenase 281 H 81-234 U/L C-Reactive Protein, Quantitative 51.40 H 0.5-3.0 mg/L Total Protein 7.1 6.0-8.3 g/dL Albumin 3.2 L 3.5-5.0 g/dL Procalcitonin < 0.05 L 0.05-0.5 ng/mL Hemoglobin A1c 6.1 H 4.0-6.0 % Estimated Average Glucose (eAG) 128 H 70-126 mg/dL Triglycerides Level 98 30-200 mg/dL Cholesterol Level 101 <200 mg/dL LDL Cholesterol 61 0-99 mg/dL HDL Cholesterol 30 29-71 mg/dL Vitamin B12 Level 588 193-986 pg/mL Lactic Acid Level 1.5 0.8-2.5 mmol/L Total Creatine Kinase 128 21-232 U/L Troponin I High Sensitivity 11 4-75 ng/L B-Type Natriuretic Peptide 314 H 0-100 pg/mL Coagulation Labs: Test 07/11/25 21:32 Range/Units Prothrombin Time 11.5 9.6-11.6 SEC Prothromb Time International Ratio 1.09 0.85-1.15 Activated Partial Thromboplast Time 27.0 26.3-35.5 SEC Impression and Plan: Acute exacerbation of heart failure with reduced ejection fraction Bacteremia - 2/2 BCx prelim positive gram positive cocci - UCx NGTD - Skin culture (drivetrain) pending Non ischemic cardiomyopathy End stage CHF with LVAD CardioMEMs device hx LVAD drive train infection Recent PNA history ICD in place Will initiate transfer to [facility] due to bacteremia. In the interim, given his chronic driveline infection, they are recommending broad spectrum ABX with vancomycin and cefepime. Will consult our local infectious disease specialist. Continue with diuretic infusion Transfer when bed available. JOHNATHAN DOZIER DO Jul 13, 2025 08:11
--- NOTE | 2025-07-13 08:12 | PN ---
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 No major over night events. continues on Bumex gtt at 1 mg/hr per cardiology management. Electrolytes have been corrected. Blood cultures positive for gram + cocci in clusters 2/2 cultures. Likely septicemia from LVAD infection. He is pending transfer to higher level of care to [facility]. He is hemodynamically stable. HR in the 90's and saturating 100% at RA. we will continue to follow cardiology recommendations and IV antibiotics. REVIEW OF SYSTEMS: 12 point ROS reviewed with patient. Pertinent positives mentioned above. Otherwise negative. PHYSICAL EXAM: GENERAL: alert, weak, awake oriented x 3 HEENT: EOMI, Sclera non icteric, moist mucosa NECK: Supple, no JVD, trachea midline LUNGS: Diminished breath sounds bilaterally. No wheezes HEART: Regular rate and rhythm. Normal S1 and S2, without murmurs ABD: Abdomen soft, nontender. Bowel sounds present EXT: No clubbing cyanosis or edema NEURO: Alert and oriented to person, follows commands Vital Signs (last 8hr) Date Time Temp Pulse Resp B/P (MAP) Pulse Ox O2 Delivery O2 Flow Rate FiO2 07/13/25 07:00 97 17 136/87 97 Nasal Cannula 2.0 07/13/25 05:00 90 17 94 Nasal Cannula 2.0 07/13/25 04:00 88 19 97 Nasal Cannula 2.0 07/13/25 04:00 97 Nasal Cannula* 2 28 07/13/25 03:00 88 21 99 Nasal Cannula 2.0 07/13/25 02:00 91 19 99 Nasal Cannula 2.0 07/13/25 01:00 94 22 98 Nasal Cannula 2.0 LABS: Hematology Labs: Test 07/13/25 05:47 Range/Units White Blood Count 14.9 H 4.8-10.8 K/uL Red Blood Count 5.27 4.50-6.20 MIL/uL Hemoglobin 13.9 L 14.0-18.0 g/dL Hematocrit 43.5 42-54 % Mean Corpuscular Volume 82.5 79-99 fL Mean Corpuscular Hemoglobin 26.4 L 27.0-33.0 pg Mean Corpuscular Hemoglobin Concent 32.0 32.0-36.0 g/dL Red Cell Distribution Width 15.9 H 11.0-15.5 % Platelet Count 246 130-400 K/uL Mean Platelet Volume 10.2 7.5-10.5 fL Immature Granulocyte % (Auto) 0.4 0-1 % Neutrophils (%) (Auto) 75.4 40.0-77.0 % Lymphocytes (%) (Auto) 16.4 L 21.0-51.0 % Monocytes (%) (Auto) 6.0 3.0-13.0 % Eosinophils (%) (Auto) 1.1 0.0-8.0 % Basophils (%) (Auto) 0.7 0.0-5.0 % Neutrophils # (Auto) 11.2 H 1.8-7.7 K/uL Lymphocytes # (Auto) 2.4 1.0-4.8 K/uL Monocytes # (Auto) 0.9 0.1-1.0 K/uL Eosinophils # (Auto) 0.16 0.00-0.70 K/uL Basophils # (Auto) 0.10 0.00-0.20 K/uL Absolute Immature Granulocyte (auto 0.06 0-1 K/uL Nucleated Red Blood Cells 0.0 0.0-0.19 % Erythrocyte Sedimentation Rate 27 H 0-15 MM/HR Chemistry Labs: Test 07/13/25 05:47 07/12/25 08:55 07/12/25 01:48 07/11/25 21:32 Range/Units Sodium Level 137 136-145 mmol/L Potassium Level 3.7 3.5-5.1 mmol/L Chloride Level 98 L 101-111 mmol/L Carbon Dioxide Level 32 21-32 mmol/L Blood Urea Nitrogen 22 H 7-18 mg/dL Creatinine 0.9 0.5-1.3 mg/dL Glomerular Filtration Rate Calc 122 >90 mL/min Random Glucose 108 H 70-105 mg/dL Total Calcium 8.6 8.5-10.1 mg/dL Magnesium Level 2.20 1.80-2.40 mg/dL Total Bilirubin 0.8 0.2-1.0 mg/dL Aspartate Amino Transf (AST/SGOT) 21 10-37 U/L Alanine Aminotransferase (ALT/SGPT) 26 12-78 U/L Alkaline Phosphatase 86 50-136 U/L Lactate Dehydrogenase 281 H 81-234 U/L C-Reactive Protein, Quantitative 51.40 H 0.5-3.0 mg/L Total Protein 7.1 6.0-8.3 g/dL Albumin 3.2 L 3.5-5.0 g/dL Procalcitonin < 0.05 L 0.05-0.5 ng/mL Hemoglobin A1c 6.1 H 4.0-6.0 % Estimated Average Glucose (eAG) 128 H 70-126 mg/dL Triglycerides Level 98 30-200 mg/dL Cholesterol Level 101 <200 mg/dL LDL Cholesterol 61 0-99 mg/dL HDL Cholesterol 30 29-71 mg/dL Vitamin B12 Level 588 193-986 pg/mL Lactic Acid Level 1.5 0.8-2.5 mmol/L Total Creatine Kinase 128 21-232 U/L Troponin I High Sensitivity 11 4-75 ng/L B-Type Natriuretic Peptide 314 H 0-100 pg/mL Coagulation Labs: Test 07/11/25 21:32 Range/Units Prothrombin Time 11.5 9.6-11.6 SEC Prothromb Time International Ratio 1.09 0.85-1.15 Activated Partial Thromboplast Time 27.0 26.3-35.5 SEC DIAGNOSTICS / RADIOLOGY RESULTS: [ ] PLAN Pending Transfer to higher level of care LVAD complicated with septicemia NEURO: Minimize central acting medications as possible. Fall Precautions. Well lighted room through the day and minimize interruptions through the night to prevent acute delirium. PULMONARY: Supplemental 02 as needed Titrate Fio2 to keep Spo2 > or = 90% DuoNebs and CPT as needed ABG Follow chest x-ray CARDIOVASCULAR: auscultate pericardium for hum Keep LVAD battery plugged in monitor for LVAD alarms Titrate vasopressor to keep MAP >40 Continuous cardiac monitoring Follow cardiology recommendation who we will be coordinating with LVAD specialist q.day LVAD coordinator is Ms Moraes Ph number [phone] follow LVAD coordinator recs DRIPS: bumex LINES: PIV GI & NUTRITION: Continue nutritional support Aspirations precautions Prokinetic agents and laxatives as needed KIDNEYS & ELECTROLYTES: Strict monitoring of intake and output Daily weights Avoid nephrotoxic agents Monitor electrolytes and replace as needed Goal urine output of 30mL/hr or 0.5mL/kg/hr Urine output: [ ] Fluid Balance: [ ] ENDOCRINE: Maintain blood glucose between 100-180 at all times. Insulin sliding scale for blood glucose management INFECTIOUS DISEASE: Trend temperature. Denis-culture if febrile. Micro: [ ] Blood cultures Influenza COVID Antibiotics: Cefepime Vancomycin Doxycycline HEMATOLOGY & COAGULATION: Monitor H&H. Keep Hgb > 7 Transfuse 1 unit of PRBC for Hgb < 7 Transfuse 1 pack of platelets of platelets < 20, 000 Watch for any signs and symptoms of bleeding SKIN: Pressure ulcer prevention per facility protocol Rehab: PT/OT Prophylaxis: GI: [ Famotidine 20 mg p.o. daily] DVT: [ Patient on Eliquis] Code Status: Full Resuscitation Disposition: [ ICU] Other: Total patient care time exceeds 35 minutes excluding all procedures. Case was discussed and seen with my supervising physician. The above plan was formulated and agreed upon. ATTESTATION BY PHYSICIAN I attest that I reviewed and discussed the case with the Physician Leaf Conditioner Helper as well as agree with the Physician Leaf Conditioner Helper's findings, plans of care, and documentation above. Landon Stokes MD, [facility] Jul 13, 2025 08:12
[2025-07-13] MEDS ORDERED: POTASSIUM CHLORIDE 10 MEQ PO SCH (09:00)
[2025-07-13] MEDS ORDERED: PoTASSium chloRIDE 20MEQ ER 20 MEQ ERTAB PO SCH (09:00)
--- NOTE | 2025-07-13 09:35 | NUR ---
RECEIVED CALL FROM [facility] WITH ACCEPTANCE. ASKED US TO MAKE TRANSPORT ARRANGEMENTS WHILE THEY PREPARE ROOM, WILL CALL US BACK WHEN AVAILABLE
--- NOTE | 2025-07-13 09:50 | NUR ---
NOTIFIED PARENT AND PATIENT OF ACCEPTANCE AT [facility] AFTER DR DOZIER INITIATED AT 0804 THIS MORNING. THEY VERBALIZED UNDERSTANDING AND AGREEMENT. INSTRUCTED THAT I WILL BE STRATING TRANSPORT ARRANGEMNTS WHILE THE HOSPITAL ARRANGES FOR ROOM
--- NOTE | 2025-07-13 10:51 | NUR ---
INITIATED TRANSPORT WITH [facility] AND FAXED ALL PERTINENT INFORMATION TO THE FACILITY AND [facility]
--- NOTE | 2025-07-13 12:55 | CONS ---
INFECTIOUS DISEASE CONSULTATION NOTE Date of Service: Jul 13, 2025 Reason for Consultation: Blood culture +ve for cocci Requesting Physician: Dr. Chong HISTORY OF PRESENT ILLNESS: A 25 year old male with past medical history of chronic HFrEF, nonischemic cardiomyopathy with LVAD placement 4 years ago, primary prevention ICD presented with the chief complaint of shortness of breath and *increasing weight gain in last few days. Patient has been afebrile. Vital signs are normal. WBC count 14.9 today, ESR 27, CRP 51.40, lactic acid on presentation 2.6 and came down to 1.5, procalcitonin <0.05, HbA1c 6.1 %. Chest xray unremarkable. Urine culture grew <93418 CFU. Blood culture grew gram positive cocci in clusters. Abdomen drainage culture showed no growth. We are consulted for bacteremia. Patient has been started on Doxycycline, Vancomycin and Cefepime. Patient has been transferred to [facility] for higher level of care LVAD complications. Pending for the bed availability. REVIEW OF SYSTEMS CONSTITUTIONAL: Denies fever, chills, or fatigue. HEAD/FACE: No signs of trauma. EENT: Denies eye pain, blurred vision, double vision, or light sensitivity. RESPIRATORY: Denies shortness of breath, cough, wheezing CARDIOVASCULAR: Denies chest pain, palpitation, syncope GASTROINTESTINAL/ABDOMINAL: Denies abdominal pain, constipation, diarrhea, nausea or vomiting GENITOURINARY: Denies dysuria or hematuria. MUSCULOSKELETAL: Denies joint pain, tenderness, or trauma. INTEGUMENTARY: Denies rash or itchiness NEUROLOGICAL/PSYCH: Denies anxiety, depression, heat or cold intolerance. PAST MEDICAL HISTORY: Hypertension, hx of cardiomyopathy, cardiomegaly, HFrEF PAST SURGICAL HISTORY: LVAD placement 4 years ago, pacemaker placement PAST SOCIAL HISTORY: Denies smoking, alcohol or illicit drug use FAMILY HISTORY: Noncontributory Coded Allergies: No Known Drug Allergies (Unverified Allergy, Unknown, 02/21/24) PHYSICAL EXAM EYES: Anicteric. Pupils equal and reactive. HENT: No oral thrush seen, moist Oral mucosa NECK: Supple, no JVD or thyromegaly. LUNGS: Good air entry. No rales, no rhonchi. CARDIOVASCULAR: S1, S2 regular. No murmur heard. ABDOMEN: Soft, non tender, bowel sounds present, no organomegaly CENTRAL NERVOUS SYSTEM: Awake, alert, oriented x 3. No focal deficits. SKIN: No rashes, no swelling. LYMPHATICS: No peripheral lymphadenopathy MUSCULOSKELETAL: No joint swelling, erythema or tenderness. EXTREMITIES: Trace edema bilateral lower extremities. No cyanosis or clubbing BACK: No deformity, no pressure ulcer. GENITOURINARY: No dysuria or hematuria Vital Sign (Last 24 Hours) 07/13/25 07/13/25 07/13/25 07/13/25 07:00 07:45 11:39 11:56 Temp 98.2 Pulse 93 Resp 62 B/P (MAP) 104/66 Pulse Ox 98 O2 Delivery Nasal Cannula O2 Flow Rate 2.0 FiO2 21 Intake & Output (last 24hrs) 07/12/25 07/12/25 07/13/25 15:00 23:00 07:00 Intake Total 16.0 ml 1353.0 ml 2503.0 ml Output Total 700 ml 2600 ml 1100 ml Balance -684.0 ml -1247.0 ml 1403.0 ml LABS: Laboratory: Test 07/13/25 05:47 07/12/25 17:30 07/12/25 15:06 07/12/25 08:55 Range/Units White Blood Count 14.9 H 4.8-10.8 K/uL Red Blood Count 5.27 4.50-6.20 MIL/uL Hemoglobin 13.9 L 14.0-18.0 g/dL Hematocrit 43.5 42-54 % Mean Corpuscular Volume 82.5 79-99 fL Mean Corpuscular Hemoglobin 26.4 L 27.0-33.0 pg Mean Corpuscular Hemoglobin Concent 32.0 32.0-36.0 g/dL Red Cell Distribution Width 15.9 H 11.0-15.5 % Platelet Count 246 130-400 K/uL Mean Platelet Volume 10.2 7.5-10.5 fL Immature Granulocyte % (Auto) 0.4 0-1 % Neutrophils (%) (Auto) 75.4 40.0-77.0 % Lymphocytes (%) (Auto) 16.4 L 21.0-51.0 % Monocytes (%) (Auto) 6.0 3.0-13.0 % Eosinophils (%) (Auto) 1.1 0.0-8.0 % Basophils (%) (Auto) 0.7 0.0-5.0 % Neutrophils # (Auto) 11.2 H 1.8-7.7 K/uL Lymphocytes # (Auto) 2.4 1.0-4.8 K/uL Monocytes # (Auto) 0.9 0.1-1.0 K/uL Eosinophils # (Auto) 0.16 0.00-0.70 K/uL Basophils # (Auto) 0.10 0.00-0.20 K/uL Absolute Immature Granulocyte (auto 0.06 0-1 K/uL Nucleated Red Blood Cells 0.0 0.0-0.19 % Erythrocyte Sedimentation Rate 27 H 0-15 MM/HR Sodium Level 137 136-145 mmol/L Potassium Level 3.7 3.5-5.1 mmol/L Chloride Level 98 L 101-111 mmol/L Carbon Dioxide Level 32 21-32 mmol/L Blood Urea Nitrogen 22 H 7-18 mg/dL Creatinine 0.9 0.5-1.3 mg/dL Glomerular Filtration Rate Calc 122 >90 mL/min Random Glucose 108 H 70-105 mg/dL Total Calcium 8.6 8.5-10.1 mg/dL Magnesium Level 2.20 1.80-2.40 mg/dL Total Bilirubin 0.8 0.2-1.0 mg/dL Aspartate Amino Transf (AST/SGOT) 21 10-37 U/L Alanine Aminotransferase (ALT/SGPT) 26 12-78 U/L Alkaline Phosphatase 86 50-136 U/L Lactate Dehydrogenase 281 H 81-234 U/L C-Reactive Protein, Quantitative 51.40 H 0.5-3.0 mg/L Total Protein 7.1 6.0-8.3 g/dL Albumin 3.2 L 3.5-5.0 g/dL Procalcitonin < 0.05 L 0.05-0.5 ng/mL Influenza Type A Antigen Negative For Type A NEGATIVE Influenza Type B Antigen Negative For Type B NEGATIVE SARS-CoV-2 Antigen (Rapid) PRESUMPTIVE NEGATIVE NEGATIVE Blood Gas Specimen Type Arterial Arterial Blood pH 7.450 7.350-7.450 Arterial Blood Partial Pressure CO2 44 35-48 mmHg Arterial Blood Partial Pressure O2 107.2 83.0-108.0 mmHg Arterial Blood HCO3 29.7 H 21.0-28.0 mmol/L Arterial Blood Oxygen Saturation 98.0 94.0-98.0 % Arterial Blood Base Excess 5.0 H -2.0-3.0 mmol/L Hemoglobin (Blood Gas) 14.8 13.5-17.5 g/dL Sodium (Blood Gas) 137 136-145 MMOL/L Bedside Potassium (Blood Gas) 3.1 L 3.4-4.5 MMOL/L Bedside Chloride (Blood Gas) 95 L 98-107 MMOL/L Bedside Glucose (Blood Gas) 111 H 65-95 MG/DL Bedside Ionized Calcium (Blood Gas) 1.13 L 1.15-1.33 MMOL/L Bedside Lactic Acid (Blood Gas) 1.39 H 0.36-0.75 MMOL/L Blood Gas Temperature 37.0 35.5-37.0 CELSIUS Blood Gas Flow-by 2.00 0.00-15.00 L/min Blood Gas Vent Mode 2LNC ROOM AIR FiO2 28.0 % Blood Gas Specimen Comment RR MARGUERITE Hemoglobin A1c 6.1 H 4.0-6.0 % Estimated Average Glucose (eAG) 128 H 70-126 mg/dL Triglycerides Level 98 30-200 mg/dL Cholesterol Level 101 <200 mg/dL LDL Cholesterol 61 0-99 mg/dL HDL Cholesterol 30 29-71 mg/dL Vitamin B12 Level 588 193-986 pg/mL Vitamin D 25-Hydroxy 31.9 30.0-100.0 ng/mL Test 07/12/25 01:48 07/11/25 23:16 07/11/25 21:32 Range/Units Lactic Acid Level 1.5 0.8-2.5 mmol/L Urine Color YELLOW YELLOW Urine Appearance CLEAR CLEAR Urine pH 5.5 5.0-8.0 Urine Specific [place] 1.018 1.001-1.031 Urine Protein 20 H NEGATIVE mg/dL Urine Glucose (UA) 300 H NEGATIVE mg/dL Urine Ketones NEGATIVE NEGATIVE mg/dL Urine Occult Blood NEGATIVE NEGATIVE Urine Nitrate NEGATIVE NEGATIVE Urine Bilirubin NEGATIVE NEGATIVE mg/dL Urine Urobilinogen 0.2 0.2-1.0 mg/dL Urine Leukocyte Esterase NEGATIVE NEGATIVE Donald/uL Urine RBC 0-1 0-1 /HPF Urine WBC 2-5 H 0-1 /HPF Urine Squamous Epithelial Cells RARE 0-2 /HPF Urine Bacteria FEW None Seen /HPF Urine Hyaline Casts 2-5 H 0-1 /LPF /LPF Urine Opiates Screen NEGATIVE NEGATIVE Urine Barbiturates Screen NEGATIVE NEGATIVE Urine Phencyclidine Screen NEGATIVE NEGATIVE Urine Amphetamines Screen NEGATIVE NEGATIVE Urine Benzodiazepines Screen NEGATIVE NEGATIVE Urine Cocaine Screen NEGATIVE NEGATIVE Urine Marijuana (THC) Screen NEGATIVE NEGATIVE Prothrombin Time 11.5 9.6-11.6 SEC Prothromb Time International Ratio 1.09 0.85-1.15 Activated Partial Thromboplast Time 27.0 26.3-35.5 SEC Total Creatine Kinase 128 21-232 U/L Troponin I High Sensitivity 11 4-75 ng/L B-Type Natriuretic Peptide 314 H 0-100 pg/mL DIAGNOSTICS / RADIOLOGY: [facility] [address] [place] [address] IMAGING REPORT Signed PATIENT: LAMINE BRAXTON MR#: [id number] : 2000 SEX: M AGE: 25 LOCATION: [facility] ORDER 23 STATUS: [facility] REPORT#: [id number] SERVICE 21 REASON: SOB ORDERING PHYSICIAN: FRANCOIS ANTONIO PROCEDURE: CXR1VW - CHEST 1VW EXAM: CR Chest, 1 View. CLINICAL HISTORY: SOB COMPARISON: December 18 2024 FINDINGS: LUNGS: The lungs show no infiltrate or other acute finding. PLEURAL SPACES: No pleural effusion or pneumothorax. MEDIASTINUM: There is cardiomegaly. Cardiac pacemaker is seen. BONES: No aggressive appearing osseous lesion seen. IMPRESSION: No acute cardiopulmonary pathology is evident. /[place] DICTATED BY: CASSANDRA CABELLO MD DATE: 07/11/252337 ELECTRONICALLY SIGNED BY: CASSANDRA CABELLO MD DATE: 07/11/252337 ASSESSMENT: Bacteremia Sepsis Concerns for LVAD driveline infection Acute on chronic diastolic HFrEF Morbid obesity PLAN: Continue Doxycycline Continue Vancomycin Continue Cefepime Not a candidate for Rifampin to cover the biofilm due to drug interaction with Eliquis. Follow up with blood culture susceptibilities Continue GI prophylaxis This case was reviewed and discussed with my supervising physician Dr. Bautista and the above assessment and plan was formulated and agreed upon. ATTESTATION BY PHYSICIAN I have seen and examined the patient. I reviewed the documentation, medical decision making, and treatment plan as noted by the resident provider above. I agree with the findings and plan of care. INDU BAUTISTA MD, KRUPALI P MD Jul 13, 2025 12:55
[2025-07-13] MEDS: POTASSIUM CHLORIDE 10 MEQ PO SCH (14:17)
--- NOTE | 2025-07-13 20:19 | NUR ---
EMS PATIENT LEFT VIA EMS AT 2018 WITH ALL BELONGINGS. NOTIFIED THE TRANSFER CENTER [phone] OF PATIENT DEPARTURE. CALLED RECEIVING NURSE ANSHUL 3 TIMES AT [phone] NO ANSWER. CALL HOSPITAL UNIT AT [phone] TWICE WITH NO ANSWER TO NOTIFY OF PATIENT DEPARTURE
[2025-07-13] MEDS ORDERED: VANCOMYCIN 1.25 GM/250 ML BAG 250 ML IV SCH (23:00)
--- NOTE | 2025-07-14 00:59 | PN ---
SUBJECTIVE: The patient was evaluated by Cardiology and Intensive Care Unit. He was started on IV vancomycin after preliminary results of blood culture shows gram-positive cocci. OBJECTIVE: GENERAL: Currently, he is awake, alert, oriented in person, time and place, not in distress. VITAL SIGNS: In the chart. HEENT: Normocephalic, atraumatic. LUNGS: Clear to auscultation. HEART: S1, S2 are distant. ABDOMEN: Soft, nontender. Vacuum device in the right lower quadrant. ASSESSMENT AND PLAN: * Shortness of breath. Patient with LVAD. Continue with diuretics. Continue with recommendations by Cardiology. * Leukocytosis with positive Gram stain for gram-positive cocci in blood in a patient with LVAD. Continue vancomycin. Pending results of this. * Dilated cardiomyopathy. Continue with current treatment. * Hypertension, controlled. * Chronic anticoagulation. Continue with Eliquis. * Patient with vacuum device in place in the right lower quadrant for treatment of wound infection for several months, being on p.o. antibiotics by Cardiology from [place]. * Follow up in a.m. with results of tests. TID: [id number] RECEIPT: [id number]
--- NOTE | 2025-07-14 01:47 | CONS ---
INFECTIOUS DISEASE CONSULTATION DATE OF SERVICE: 07/13/2025 REQUESTING PHYSICIAN: Shabnam Chong DO REASON FOR CONSULTATION: Gram-positive bacteremia and possible LVAD infection. HISTORY OF PRESENT ILLNESS: This is a 25-year-old male with a history of CHF, hypertension, non-ischemic cardiomyopathy, and pneumonia who was admitted after presenting with shortness of breath. The patient noticed increased weight gain in the last few days. The patient also has shortness of breath and Cardiology in [place] advised him to go to the Emergency Room. The patient had been diagnosed with CHF and started on diuretics. The patient's blood culture is growing gram-positive cocci in cluster. The patient has been started on vancomycin and cefepime. Denies fever, but . No purulent drainage from the LVAD exit site in the right abdominal wall. WBC is elevated at 14,000. PAST MEDICAL HISTORY: * CHF. * Hypertension. * Ischemic cardiomyopathy. * Pneumonia. * Morbid obesity. PAST SURGICAL HISTORY: * LVAD placement. * AICD placement. ALLERGIES: No known drug allergies. CURRENT MEDICATIONS: * Vancomycin, * Cefepime. * Bumex. SOCIAL HISTORY: No alcohol, tobacco or illicit drug use. FAMILY HISTORY: Noncontributory. REVIEW OF SYSTEMS: Greater than 10-systems were reviewed, negative unless all documented above. PHYSICAL EXAMINATION: GENERAL: Young male, awake. VITAL SIGNS: Temperature 98.2, pulse 96, respiratory rate 20, BP . EYES: No icterus. Pupils equal and reactive. HENT: No oral thrush seen. Moist oral mucosa. NECK: Supple. No JVD or thyromegaly. LUNGS: Good air entry. Few crackles. CARDIOVASCULAR: S1 and S2. Regular. Tachycardic. No murmur heard. ABDOMEN: Obese. Bowel sound is present. LVAD exiting site in the right abdominal wall. Drainage from exit site. CENTRAL NERVOUS SYSTEM: Awake, alert, oriented x 3. No focal deficits. SKIN: No rashes. No itchiness. LYMPHATIC: No peripheral lymphadenopathy. BACK: No deformity, no pressure ulcer. MUSCULOSKELETAL: No joint swelling, erythema or tenderness. LABORATORY DATA: Sodium 137, potassium 2.7, BUN 22, creatinine 0.9, WBC 14.9, hemoglobin 13.9, platelets 146. Urinalysis negative. negative. Influenza antigen negative. Blood culture is growing gram-positive cocci in clusters. RADIOLOGY: Radiology is unremarkable. ASSESSMENT: A 25-year-old male who presented with shortness of breath and weight gain. * Possible left ventricular assist device line infection. * Acute on chronic heart failure. * Morbid obesity. * Ischemic cardiomyopathy. * Gram-positive bacteremia. PLAN: * Continue critical care support. * Continue diuretics. * Continue vancomycin. * Continue cefepime. * Continue pain management. * Monitor electrolytes and correct as needed. * Continue digoxin. * The patient is not a candidate for rifampin therapy at this time due to drug-drug interaction with Eliquis. Thank you for allowing me to participate in the care of this patient. TID: [id number] RECEIPT: [id number]
== END 2025-07-13 20:19 | disposition short-term general hospital (02) | DRG 206 ==
LOC: EDH 20:54 → EDHIP 20:55 → 2CH 07-12 01:05
PROVIDERS: ADMIT Internal Medicine; ATTEND Internal Medicine
DX: T82.7XXA Infection and inflammatory reaction due to other cardiac and vascular devices, implants and grafts, initial encounter (principal); J96.01 Acute respiratory failure with hypoxia; A41.9 Sepsis, unspecified organism; I50.43 Acute on chronic combined systolic (congestive) and diastolic (congestive) heart failure; Z76.82 Awaiting organ transplant status; I42.0 Dilated cardiomyopathy; I25.5 Ischemic cardiomyopathy; B96.89 Other specified bacterial agents as the cause of diseases classified elsewhere; E66.01 Morbid (severe) obesity due to excess calories; Y83.1 Surgical operation with implant of artificial internal device as the cause of abnormal reaction of the patient, or of later complication, without mention of misadventure at the time of the procedure; Z68.42 Body mass index [BMI] 45.0-49.9, adult; Z79.01 Long term (current) use of anticoagulants; Z87.01 Personal history of pneumonia (recurrent); Z95.1 Presence of aortocoronary bypass graft; Z95.810 Presence of automatic (implantable) cardiac defibrillator; Z79.2 Long term (current) use of antibiotics; Z95.811 Presence of heart assist device; Y92.89 Other specified places as the place of occurrence of the external cause
CPT/HCPCS: 36415; 36600; 71045; 80048; 80053; 80061; 80202; 80305; 81001; 82306; 82435; 82550; 82607; 82803; 82947; 83036; 83605; 83615; 83735; 83880; 84132; 84145; 84295; 84484; 85018; 85025; 85610; 85651; 85730; 86140; 86850; 86900; 86901; 87040; 87070; 87076; 87086; 87186; 87426; 87641; 87804; 93005; 99285; G0378; J0692; J0696; J1938; J3490; J3373; J3375